=== PATIENT | female | born 1965 | race Caucasian/White ===

== ENCOUNTER 2016-07-05 15:31 | Emergency (ER) | payer SELFPAY ==
[~2016-07-05] VITALS: Ht 167.6 cm; Wt 88.5 kg
[~2016-07-05 15:31] MED LIST: CIPR500T6 PO; CITA20TA9 PO; CYCL10TA2 PO; FAMO20TA5 PO; FLUC150T PO; HYDR-971 PO; IBUP-1060 PO; LORA10TA55 PO; METR500T PO
[2016-07-05 16:41] LABS: BARBITURATES NEG (NEG); BENZODIAZEPINES NEG (NEG); CANNABINOIDS POS (NEG); COCAINE NEG (NEG); METHADONE NEG (NEG); OPIATES NEG (NEG); PHENCYCLIDINE NEG (NEG)
[2016-07-05 16:42] LABS: ETHANOL, URINE NEG (NEG)
[2016-07-05 16:44] LABS: BILIRUBIN,URINE SMALL (NEG); GLUCOSE,URINE NEGATIVE (NEG); NITRITE,URINE NEGATIVE (NEG); PH,URINE 5.5; PROTEIN,URINE 30 mg/dL (NEG-TRACE); UROBILINOGEN,URINE 0.2 mg/dL (0.2 mg/dL)
[2016-07-05 16:52] LABS: BACTERIA,URINE FEW /HPF (0-FEW); RBC,URINE OCC /HPF (0-2); WBC,URINE RARE /HPF (0-4)
[2016-07-05 16:53] LABS: SQUAMOUS EPITHELIAL CELL,UR MANY /LPF
[2016-07-05 16:58] LABS: CALCIUM 8.9 mg/dL (8.5-10.1); CREATININE 0.8 mg/dL (0.6-1.0); GFR 76.2; POTASSIUM 3.7 mmol/L (3.5-5.1)
[2016-07-05 17:04] LABS: ALBUMIN 3.7 g/dL (3.4-5.0); ALBUMIN/GLOBULIN RATIO 0.9 (1.0-1.7); TOTAL BILIRUBIN 0.3 mg/dL (0.2-1.0); TOTAL PROTEIN 7.7 g/dL (6.4-8.2)
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
[2016-07-05] MEDS: ZIPRASIDONE 20 MG CAPSULE PO ONE ×2 (18:05→18:07)
[2016-07-05 18:13] VITALS: BP 133/68
== END 2016-07-05 18:16 | disposition home or self-care (01) ==
LOC: ER 15:31
DX: F30.9 Manic episode, unspecified (principal); F19.10 Other psychoactive substance abuse, uncomplicated; F41.9 Anxiety disorder, unspecified; F31.9 Bipolar disorder, unspecified; G89.29 Other chronic pain; F43.10 Post-traumatic stress disorder, unspecified; M54.30 Sciatica, unspecified side; Z88.0 Allergy status to penicillin; Z88.5 Allergy status to narcotic agent; Z88.6 Allergy status to analgesic agent
CPT/HCPCS: 36415; 80053; 80305; 80320; 81001; 81025; 84703; G0480; G0481; 99284-25